=== PATIENT | female | born 1950 | race Caucasian/White ===

== ENCOUNTER → 2016-08-17 | Outpatient (CLI) | payer MEDICARE, OTHER ==
--- NOTE | 2016-08-17 11:22 | REPMRS ---
Patient History The patient states she had a clinical breast exam in 07/2016. Patient is postmenopausal and has history of other cancer at age 61. Family history of colorectal cancer in father and breast cancer in 2 paternal cousins at age 50 or over. Benign cyst aspiration of the left breast, 1999. Taking unspecified hormones for 19 years. [facility] Screen Mammo: August 17, 2016 - Exam #: [id number] Bilateral CC and MLO view(s) were taken. Technologist: Ann Walsh, Technologist Prior study comparison: August 17, 2015, digital woman screen mammo performed at [facility]. August 14, 2014, digital woman screen mammo performed at [facility]. August 14, 2013, digital woman screen mammo performed at [facility]. FINDINGS: There are scattered fibroglandular densities. There has been no change in the appearance of the mammogram from the prior studies. There is a mild amount of scattered fibroglandular density which is fairly symmetric. There is no interval development of dominant mass, architectural distortion, or clustered microcalcification suggestive of malignancy. ASSESSMENT: BI-RADS/ACR category 1 mammogram. Negative. Recommendation Routine screening mammogram in 1 year (for women over age 40). This mammogram was interpreted with the aid of an FDA-approved computer-aided dectection system. Electronically Signed By: Jb Navarro MD 08/17/16 1122
== END ==
LOC: M WHC 09:02
PROVIDERS: ATTEND Nurse Practitioner Family
DX: Z01.419 Encounter for gynecological examination (general) (routine) without abnormal findings (principal); Z12.31 Encounter for screening mammogram for malignant neoplasm of breast; Z78.0 Asymptomatic menopausal state; Z12.12 Encounter for screening for malignant neoplasm of rectum; Z80.0 Family history of malignant neoplasm of digestive organs; Z92.0 Personal history of contraception
CPT/HCPCS: 82270; G0101; G0202

== ENCOUNTER → 2017-08-18 | Outpatient (CLI) | payer MEDICARE, OTHER | LOC: M WHC 09:25 | DX: Z01.419 Encounter for gynecological examination (general) (routine) without abnormal findings (principal); Z12.31 Encounter for screening mammogram for malignant neoplasm of breast (principal); Z78.0 Asymptomatic menopausal state; Z80.3 Family history of malignant neoplasm of breast; Z92.89 Personal history of other medical treatment; Z12.12 Encounter for screening for malignant neoplasm of rectum; Z92.29 Personal history of other drug therapy | CPT/HCPCS: 77067 ==

== ENCOUNTER → 2018-08-21 | Outpatient (CLI) | payer MEDICARE, OTHER ==
--- NOTE | 2018-08-21 11:07 | REPMRS ---
Patient History The patient states she had a clinical breast exam in 07/2018. Patient is postmenopausal and has history of basal cell skin cancer at age 61 and nonactive Chronic lymphatic leukemia . Family history of breast cancer at age 50 or over in paternal cousin, breast cancer at age 50 or over in paternal cousin, colorectal cancer in father, breast cancer at age 50 in daughter. Genetically tested negative for BRCA1 in daughter and negative for BRCA2 in daughter. Benign cyst aspiration of the left breast, 2000. Took unspecified hormones for 19 years. 3D TOMOSYNTHESIS WAS PERFORMED. [facility] Woman Screen Mammo: August 21, 2018 - Exam #: [id number] Bilateral CC and MLO view(s) were taken. Technologist: Ann Walsh, Technologist Prior study comparison: August 18, 2017, digital woman screen mammo performed at [facility]. August 17, 2016, digital woman screen mammo performed at [facility]. FINDINGS: There are scattered fibroglandular densities. There has been no change in the appearance of the mammogram from the prior studies. There is a mild amount of residual fibroglandular tissue which is fairly symmetric. There is no interval development of dominant mass, architectural distortion, or clustered microcalcification suggestive of malignancy. Assessment: BI-RADS/ACR category 1 mammogram. Negative Mammogram. Recommendation Routine screening mammogram in 1 year (for women over age 40). This mammogram was interpreted with the aid of an FDA-approved computer-aided dectection system. Electronically Signed By: Cayetano Smalls MD 08/21/18 [id number]
== END ==
LOC: M WHC 09:10
PROVIDERS: ATTEND Nurse Practitioner Family
DX: Z12.31 Encounter for screening mammogram for malignant neoplasm of breast (principal); Z78.0 Asymptomatic menopausal state; Z85.828 Personal history of other malignant neoplasm of skin; Z80.3 Family history of malignant neoplasm of breast; Z92.89 Personal history of other medical treatment; Z92.29 Personal history of other drug therapy; Z12.12 Encounter for screening for malignant neoplasm of rectum
CPT/HCPCS: 77063; 77067; 82270; G0101